=== PATIENT | male | born 1985 | race African-American/Black ===

== ENCOUNTER 2016-11-30 08:15 | Emergency (ER) | payer SELFPAY ==
--- NOTE | ~2016-11-30 | CT71 ---
[facility] A Service of [facility] RADIOLOGY TEXT RESULTS PATIENT: PATRICIA MARIEE JR LOCATION: [facility] : 89 UNIT #: [id number] AGE: [address]: Maite Leggett SEX: M ORDER DR: [id number] [facility] [address] [place], [place] [address] [id number] MR#: [id number] Acc #: [id number] NAME: PATRICIA MARIEE : 1985 SEX: M STUDY DATE/TIME: 11/30/2016 8:35 UNIT: [place] ROOM: STUDY DESCRIPTION: CT Head Wo Contrast Attending Physician: Maite Leggett Pa-C Ordering Physician: Ed Doctor [id number] [facility] Primary Care Physician: Primary Care Physician No MEDICAL IMAGING REPORT This report is preliminary unless electronic signature is present EXAM Noncontrast CT head. Date: 11/30/2016 HISTORY Hit in head on 11/29/2016 playing basketball. Right frontal head pain since that time. COMPARISON None. This CT exam was performed with one or more of the following radiation dose reduction techniques: automatic exposure control, adjustment of mA and/or kV according to patient size, and iterative reconstruction. FINDINGS Suspected incompletely imaged left maxillary sinus mucous retention cyst or polyp. Mild bilateral ethmoid sinus mucosal thickening. No displaced calvarial fracture. Mastoid air cells are clear. No acute intracranial hemorrhage, mass lesion, mass effect or midline shift or evidence of acute or evolving infarct. Ventricular configuration is normal. IMPRESSION 1. No acute intracranial findings. 2. Suspected incompletely imaged left maxillary sinus mucous retention cyst or polyp with mild bilateral ethmoid sinus mucosal thickening. Dictated by... Jing Heath M.D. THIS IS AN ELECTRONICALLY VERIFIED REPORT Jing Heath M.D. at 12/01/2016 8:46 AM [facility] A Service of [facility] RADIOLOGY TEXT RESULTS PATIENT: PATRICIA MARIEE JR LOCATION: [facility] : 89 UNIT #: [id number] AGE: [address]: Maite Leggett SEX: M ORDER DR: DERECK/soha TD: 11/30/2016 11:03 JOB #: [id number] MEDICAL IMAGING REPORT Page 1 of 1 COPY
[~2016-11-30 08:15] MED LIST: AMOXIL875 MG PO; FLEXERIL10 MG PO; KETOPROFEN PO; VIBRAMYCIN100 M1 PO
== END 2016-11-30 09:01 | disposition home or self-care (01) ==
LOC: CED 08:15 → CFTX 08:15
DX: S09.90XA Unspecified injury of head, initial encounter (principal); F17.210 Nicotine dependence, cigarettes, uncomplicated; Y93.67 Activity, basketball
CPT/HCPCS: 70450; 99284